=== PATIENT | male | born 2000 | race Caucasian/White ===

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

== ENCOUNTER 2019-11-03 19:12 | Emergency (ER) | payer OTHER ==
--- NOTE | 2019-11-03 20:48 | EDPHYS ---
Physician Documentation [facility] Name: Adam Moreno Age: 19 yrs Sex: Male : 2000 Arrival Date: 11/03/2019 Time: 19:14 Bed 15 Private MD: Nick Moreno HPI: 11/03 20:39 This 19 yrs old Male presents to ER via Ambulatory with complaints of Penile pm1 Pain. 20:39 The patient presents with Pain to his penis. Onset: The symptoms/episode began/occurred pm1 yesterday. Modifying factors: The symptoms are alleviated by nothing, the symptoms are aggravated by nothing. Associated signs and symptoms: Pertinent negatives: Testicular pain. No penile discharge. No dysuria. Severity of symptoms: in the emergency department the symptoms have improved, a " 2" out of "10". The patient has not experienced similar symptoms in the past. Patient noticed pain to his penis after having sex last night. Noticed that a vein on the right side of the shaft of his penis was hardened. Historical: - Allergies: 19:24 No Known Allergies; sg - Home Meds: 19:24 None [Active]; sg - PMHx: 19:24 None; sg - PSHx: 19:24 Knee surgery; sg - Immunization history:: Adult Immunizations up to date. - Coronavirus screen:: The patient has NOT traveled to [place] in the past 14 days. The patient has NOT had contact with known/suspected case of Coronavirus?. - Social history:: Smoking status: Patient denies any tobacco usage or history of. - Ebola Screening: : Patient negative for fever greater than or equal to 101.5 degrees Fahrenheit, and additional compatible Ebola Virus Disease symptoms Patient denies exposure to infectious person Patient denies travel to an Ebola-affected area in the 21 days before illness onset No symptoms or risks identified at this time. ROS: 20:39 Constitutional: Negative for fever, chills, and weight loss, Cardiovascular: Negative pm1 for chest pain, palpitations, and edema, Respiratory: Negative for shortness of breath, cough, wheezing, and pleuritic chest pain, Abdomen/GI: Negative for abdominal pain, nausea, vomiting, diarrhea, and constipation, Back: Negative for injury and pain. 20:39 MS/Extremity: Negative for injury and deformity, Skin: Negative for injury, rash, and discoloration, Neuro: Negative for headache, weakness, numbness, tingling, and seizure. 20:39 : Positive for penile pain, Negative for urinary symptoms, hematuria, burning with urination, difficulty urinating, penile discharge, testicular pain Exam: 20:39 Constitutional: This is a well developed, well nourished patient who is awake, alert, pm1 and in no acute distress. Head/Face: Normocephalic, atraumatic. Chest/axilla: Normal chest wall appearance and motion. Nontender with no deformity. No lesions are appreciated. Cardiovascular: Regular rate and rhythm with a normal S1 and S2. No gallops, murmurs, or rubs. Normal PMI, no JVD. No pulse deficits. Respiratory: Lungs have equal breath sounds bilaterally, clear to auscultation and percussion. No rales, rhonchi or wheezes noted. No increased work of breathing, no retractions or nasal flaring. Abdomen/GI: Soft, non-tender, with normal bowel sounds. No distension or tympany. No guarding or rebound. No evidence of tenderness throughout. Back: No spinal tenderness. No costovertebral tenderness. Full range of motion. Skin: Warm, dry with normal turgor. Normal color with no rashes, no lesions, and no evidence of cellulitis. MS/ Extremity: Pulses equal, no cyanosis. Neurovascular intact. Full, normal range of motion. 20:39 : Male external genitalia: palpable cord like sensation to right dorsal vein near the base of the penis, No testicular swelling or tenderness. 20:39 Neuro: Exam negative for acute changes, Motor: moves all fours, Gait: is steady, at a normal pace, without difficulty. Vital Signs: 19:25 BP 139 / 66; Pulse 72; Resp 18; Temp 98.2; Pulse Ox 100% on R/A; sg 20:30 BP 122 / 78; Pulse 80; Resp 18; Temp 98; Pulse Ox 100% on R/A; mg2 MDM: 19:25 Patient medically screened. [facility] 20:39 Data reviewed: vital signs. Data interpreted: Pulse oximetry: on room air is 100 %. pm1 Interpretation: normal. Counseling: I had a detailed discussion with the patient and/or guardian regarding: the historical points, exam findings, and any diagnostic results supporting the discharge/admit diagnosis, the need for outpatient follow up, to return to the emergency department if symptoms worsen or persist or if there are any questions or concerns that arise at home. Administered Medications: 20:52 Drug: TORadol 60 mg Route: IM; Site: right gluteus; mg2 20:52 Follow up: Response: No adverse reaction; Medication administered at discharge. mg2 Disposition: 11/04 07:06 Co-signature as Attending Physician, Nick Ponce MD I agree with the assessment and sherry plan of care. Disposition: 11/03/19 20:47 Discharged to Home. 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 - Condition is Stable. - Discharge Instructions: Phlebitis. - Medication Reconciliation Form, Thank You Letter, Antibiotic Education, Prescription Opioid Use form. - Follow up: Rasheed Lindsey MD; When: 2 - 3 days; Reason: Recheck today's complaints, Continuance of care, Re-evaluation by your physician. Follow up: Emergency Department; When: As needed; Reason: Worsening of condition. - Problem is new. - Symptoms have improved. Signatures: Wilman Bhatt RN RN sg Nick Ponce MD MD cha Marinas, Patrick, CIGAR MAKER CIGAR MAKER pm1 Javier Che RN RN mg2 Corrections: (The following items were deleted from the chart) 11/03 21:07 20:47 11/03/2019 20:47 Discharged to Home. Impression: Thrombophlebitis of superficial pm1 veins of penis - Penil Mondor's disease. Condition is Stable. Forms are Medication Reconciliation Form, Thank You Letter, Antibiotic Education, Prescription Opioid Use. Follow up: Rasheed Lindsey; When: 2 - 3 days; Reason: Recheck today's complaints, Continuance of care, Re-evaluation by your physician. Follow up: Emergency Department; When: As needed; Reason: Worsening of condition. Problem is new. Symptoms have improved. pm1 21:12 21:07 11/03/2019 20:47 Discharged to Home. Impression: Thrombophlebitis of superficial mg2 veins of penis - Penile Mondor's disease. Condition is Stable. Discharge Instructions: Phlebitis. Forms are Medication Reconciliation Form, Thank You Letter, Antibiotic Education, Prescription Opioid Use. Follow up: Rasheed Lindsey; When: 2 - 3 days; Reason: Recheck today's complaints, Continuance of care, Re-evaluation by your physician. Follow up: Emergency Department; When: As needed; Reason: Worsening of condition. Problem is new. Symptoms have improved. pm1
--- NOTE | 2019-11-03 20:48 | ER ---
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 reports symptoms began after ejaculation. Transition of care: patient was not received from another setting of care. Onset of symptoms was November 03, 2019. Risk Assessment: Do you want to hurt yourself or someone else? Patient reports no desire to harm self or others. Initial Sepsis Screen: Does the patient meet any 2 criteria? No. Patient's initial sepsis screen is negative. Does the patient have a suspected source of infection? No. Patient's initial sepsis screen is negative. Care prior to arrival: None. 19:22 Method Of Arrival: Ambulatory sg 19:22 Acuity: RACHEL 3 sg Triage Assessment: 19:22 General: Appears in no apparent distress. comfortable, well groomed, well developed, sg well nourished, Behavior is calm, cooperative, appropriate for age. Pain: Complains of pain in shaft of penis Quality of pain is described as aching. Historical: - Allergies: 19:24 No Known Allergies; sg - Home Meds: 19:24 None [Active]; sg - PMHx: 19:24 None; sg - PSHx: 19:24 Knee surgery; sg - Immunization history:: Adult Immunizations up to date. - Coronavirus screen:: The patient has NOT traveled to [place] in the past 14 days. The patient has NOT had contact with known/suspected case of Coronavirus?. - Social history:: Smoking status: Patient denies any tobacco usage or history of. - Ebola Screening: : Patient negative for fever greater than or equal to 101.5 degrees Fahrenheit, and additional compatible Ebola Virus Disease symptoms Patient denies exposure to infectious person Patient denies travel to an Ebola-affected area in the 21 days before illness onset No symptoms or risks identified at this time. Screenin:11 Abuse screen: Denies threats or abuse. Denies injuries from another. Nutritional mg2 screening: No deficits noted. Tuberculosis screening: No symptoms or risk factors identified. Fall Risk None identified. Assessment: 21:09 General: Appears in no apparent distress. comfortable, Behavior is calm, cooperative. mg2 Pain: Complains of pain in shaft of penis. Neuro: Level of Consciousness is awake, alert, obeys commands, Oriented to person, place, time, situation. Cardiovascular: Capillary refill < 3 seconds Patient's skin is warm and dry. Respiratory: Airway is patent Respiratory effort is even, unlabored, Respiratory pattern is regular, symmetrical. GI: No signs and/or symptoms were reported involving the gastrointestinal system. : Reports pain in the penis. EENT: No signs and/or symptoms were reported regarding the EENT system. Derm: Skin is intact, is healthy with good turgor, Skin is pink, warm \T\ dry. normal. Musculoskeletal: Circulation, motion, and sensation intact. Capillary refill < 3 seconds. Vital Signs: 19:25 BP 139 / 66; Pulse 72; Resp 18; Temp 98.2; Pulse Ox 100% on R/A; sg 20:30 BP 122 / 78; Pulse 80; Resp 18; Temp 98; Pulse Ox 100% on R/A; mg2 ED Course: 19:14 Patient arrived in ED. jg7 19:22 Neil Alfaro NP is PHCP. pm1 19:22 Nick Ponce MD is Attending Physician. pm1 19:24 Triage completed. sg 19:24 Arm band placed on. sg 19:35 Javier Che, EDILBERTO is Primary Nurse. mg2 20:40 Rasheed Lindsey MD is Referral Physician. pm1 21:11 Patient has correct armband on for positive identification. mg2 21:11 No provider procedures requiring assistance completed. Patient did not have IV access mg2 during this emergency room visit. Administered Medications: 20:52 Drug: TORadol 60 mg Route: IM; Site: right gluteus; mg2 20:52 Follow up: Response: No adverse reaction; Medication administered at discharge. mg2 Outcome: 20:47 Discharge ordered by . pm1 21:11 Discharged to home ambulatory. mg2 21:11 Condition: stable 21:11 Discharge instructions given to patient, Instructed on discharge instructions, follow up and referral plans. Demonstrated understanding of instructions, follow-up care. 21:12 Patient left the ED. mg2 Signatures: Wilman Bhatt, RN RN sg Neil Alfaro, CRYSTAL FINISHER CRYSTAL FINISHER pm1 Javier Che, EDILBERTO RN mg2 Marilee George [id number]
[2019-11-03] MEDS ORDERED: KETOROLAC 30 MG/ML INJ ONE (20:52)
[2019-11-03 22:45] VITALS: O2SAT 100
[2019-11-03 22:47] VITALS: BP 122/78; TEMP 98
== END 2019-11-03 21:12 | disposition home or self-care (01) ==
LOC: ER 19:12
DX: I80.8 Phlebitis and thrombophlebitis of other sites (principal)
CPT/HCPCS: 96372; 99283